=== PATIENT | female | born 1990 | race African-American/Black ===

== ENCOUNTER 2023-11-14 06:05 | Day surgery (SDC) | payer BC, OTHER ==
[2023-11-09 15:09] VITALS: BMI 26.6
[2023-11-14] MEDS ORDERED: ACETAMINOPHEN INJECTION 100 ML IVPB ONE (07:12)
[2023-11-14] MEDS ORDERED: BUPIVACAINE HCL/PF 0.25% (2.5MG/ML) 10 ML VIAL ONE (07:22)
[2023-11-14] MEDS ORDERED: BUPIVACAINE HCL/PF 2.5 MG/ML - 30 ML VIAL IJ ONE (07:22)
[2023-11-14] MEDS ORDERED: DEXAMETHASONE SOD PHOSPHATE 4 MG/1 ML VIAL ONE (07:26)
[2023-11-14] MEDS ORDERED: ONDANSETRON 4 MG/2 ML VIAL ONE (07:26)
[2023-11-14] MEDS ORDERED: ceFAZolin SODIUM 1 GM VIAL ONE (07:26)
[2023-11-14] MEDS ORDERED: PROPOFOL 20 ML ONE ×3 (07:27→12:59)
[2023-11-14] MEDS ORDERED: LIDOCAINE HCL/PF 2% SDV 5ML VIAL ONE (07:27)
[2023-11-14] MEDS ORDERED: MIDAZOLAM HCL 2 MG/2 ML SINGLE DOSE VIAL ONE (07:27)
[2023-11-14] MEDS ORDERED: ROCURONIUM BROMIDE 50 MG/5 ML SYRINGE ONE (07:27)
[2023-11-14] MEDS ORDERED: SEVOFLURANE 250 ML BTL ONE (09:03)
[2023-11-14] MEDS: BUPIVACAINE HCL/PF 0.25% (2.5MG/ML) 10 ML VIAL IJ ONE ×2 (10:05→11:08)
[2023-11-14] MEDS ORDERED: PROPOFOL 80 ML ONE (11:36)
[2023-11-14] MEDS ORDERED: BACITRACIN ZINC 15 GM TUBE TOPICAL OINTMENT ONE (13:00)
[2023-11-14] MEDS ORDERED: ONDANSETRON 4 MG/2 ML VIAL IVPUSH PRN (13:40)
[2023-11-14] MEDS ORDERED: oxyCODONE HCL 5 MG TABLET PO PRN ×2 (13:40→13:43)
[2023-11-14] MEDS ORDERED: FENTANYL CITRATE/PF 50 MCG/ML VIAL ONE (13:41)
[2023-11-14] MEDS ORDERED: ONDANSETRON 4 MG/2 ML VIAL IVPB PRN (13:43)
[2023-11-14] MEDS ORDERED: LACTATED RINGERS SOLUTION 1,000 ML IV SCH ×2 (13:45)
[2023-11-14 14:07] VITALS: TEMP 97
[2023-11-14 14:13] VITALS: RESP 18
[2023-11-14] MEDS ORDERED: oxyCODONE HCL 5 MG TABLET ONE (15:07)
[2023-11-14] MEDS: oxyCODONE HCL 5 MG TABLET PO PRN (15:15)
[2023-11-14 15:47] VITALS: BP 118/76; PULSE 89
== END 2023-11-14 16:35 | disposition home or self-care (01) ==
LOC: FASU 06:05
PROVIDERS: ATTEND Plastic Surgery
PROC: 0H0V0ZZ Alteration of Bilateral Breast, Open Approach (ICD-10-PCS; principal; 2023-11-14 08:46)
DX: N62 Hypertrophy of breast (principal)
CPT/HCPCS: 81025; 88305-TC; 94760; J0131